=== PATIENT | male | born 1950 | race Caucasian/White ===

== ENCOUNTER → 2016-06-06 | Outpatient (REF) | payer MEDICARE, OTHER ==
[2016-06-06 15:43] LABS: BASOPHILS % (AUTO) 1 % (0-2); EOSINOPHILS # (AUTO) 0.5 10^3uL; EOSINOPHILS % (AUTO) 6 % (0-4); MEAN CORPUSCULAR HEMOGLOBIN 29.3 PG (26.0-34.0); MEAN CORPUSCULAR VOLUME 86 FL (80-100); MEAN PLATELET VOLUME 11.5 FL (6.0-9.5); MONOCYTES % (AUTO) 12 % (3-11); NEUTROPHILS # (AUTO) 5.5 X10^3; NEUTROPHILS % (AUTO) 69 % (51-67); PLATELET COUNT 228 10^3uL (150-450); WHITE BLOOD COUNT 7.91 10^3uL (4.0-11.0)
[2016-06-06 15:49] LABS: ALBUMIN 4.1 g/dL (3.4-5.0); ANION GAP 15.1 MEQ/L (3-15); TOTAL PROTEIN 6.9 g/dL (6.4-8.5)
== END ==
LOC: LAB 14:45
PROVIDERS: ATTEND Family Medicine
DX: R41.3 Other amnesia (principal); E78.1 Pure hyperglyceridemia
CPT/HCPCS: 80053; 80061; 82306; 82607; 82746; 84443; 85025

== ENCOUNTER → 2016-06-10 | Outpatient (CLI) | payer MEDICARE, OTHER | LOC: RAD 08:23 | PROVIDERS: ATTEND Family Medicine | DX: F03.90 Unspecified dementia, unspecified severity, without behavioral disturbance, psychotic disturbance, mood disturbance, and anxiety (principal); R41.3 Other amnesia; R90.82 White matter disease, unspecified; J32.0 Chronic maxillary sinusitis; J32.2 Chronic ethmoidal sinusitis | CPT/HCPCS: 70553; A9579 ==

== ENCOUNTER → 2016-08-24 | Outpatient (REF) | payer MEDICARE, OTHER ==
[~2016-08-24] MED LIST: AML5T PO; FLUC100T6 PO; LMTL2.5TRX PO; LSRT50T PO; MMT17NA; MULT-954 PO; OLOP30.5 NS; OMEP40CA36 PO; SILD100T PO; TEST100V3 IM
== END ==
LOC: LAB 12:43
PROVIDERS: ATTEND Nurse Practitioner Family
DX: E06.3 Autoimmune thyroiditis (principal); E11.9 Type 2 diabetes mellitus without complications
CPT/HCPCS: 83036; 84443